=== PATIENT | male | born 2005 | race Two or more races ===

== ENCOUNTER 2023-12-04 22:42 | Emergency (ER) | payer OTHER ==
[~2023-12-04] VITALS: Ht 167.6 cm; Wt 66.7 kg
[2023-12-05] MEDS ORDERED: CEPHALEXIN500 M1 PO (02:34)
== END 2023-12-05 02:40 ==
LOC: ER 22:44
DX: S01.511A Laceration without foreign body of lip, initial encounter (principal); X58.XXXA Exposure to other specified factors, initial encounter; Y93.89 Activity, other specified; Y92.89 Other specified places as the place of occurrence of the external cause; Y99.8 Other external cause status